=== PATIENT | male | born 1940 | race Two or more races ===

== ENCOUNTER → 2020-05-11 | Outpatient (CLI) | payer MEDICARE, MEDICAID | END | disposition home or self-care (01) | LOC: XY 09:35 | PROVIDERS: ATTEND Podiatrist | DX: I70.293 Other atherosclerosis of native arteries of extremities, bilateral legs (principal); R60.9 Edema, unspecified; L97.519 Non-pressure chronic ulcer of other part of right foot with unspecified severity | CPT/HCPCS: 93925 ==

== ENCOUNTER → 2020-05-26 | Outpatient (CLI) | payer MEDICARE, MEDICAID ==
[~2020-05-26] MED LIST: APIX2.5T PO; BIMA0.01 EACHEYE; BRIN1SUS EACHEYE; BUME1TAB3 PO; CARV3.1240 PO; CETI5TAB20 PO; DOXY100C2 PO; GABA300C10 PO; LEVO25TA6 PO; MECL12.514 PO; METO2.5T11 PO; TRAZ-181 PO
[2020-05-26 09:52] VITALS: BP 108/52
[2020-05-26 10:03] VITALS: BP 115/53
[2020-05-26 11:41] LABS: Basophils # (auto) 0 10 ^3/uL (0-0.2); Basophils % (auto) 0.7 % (0.0-2.0); Eosinophils # (auto) 0.1 10 ^3/uL (0-0.8); Eosinophils % (auto) 1.9 % (0.0-7.0); Hematocrit 31.5 % (41.0-53.0); Hemoglobin 10.9 g/dL (13.5-17.5); Lymphocytes # (auto) 0.8 10 ^3/uL (0.4-5.4); Lymphocytes % (auto) 18.5 % (10.0-50.0); Mean Corpuscular Hemoglobin 32.5 pg (28.0-32.0); Mean Corpuscular Hgb Conc. 34.6 g/dL (32.0-36.0); Mean Corpuscular Volume 93.8 fL (80.0-100.0); Monocytes # (auto) 0.3 10 ^3/uL (0-1.3); Monocytes % (auto) 7.7 % (0.0-12.0); Neutrophils # (auto) 3.2 10 ^3/uL (1.6-8.6); Neutrophils % (auto) 71.2 % (37.0-80.0); Nucleated Red Blood Cells % 0.1 %; Platelet Count (auto) 154 10^3/uL (140-450); Red Blood Cells 3.36 10^6/uL (4.5-5.90); Red Cell Distribution Width 15.2 % (11.8-14.3); White Blood Cell 4.4 10^3/uL (4.4-10.8)
[2020-05-26 11:50] LABS: BUN/Creatinine Ratio 45.6
[2020-05-26 11:59] LABS: Potassium 2.7 mmol/L (3.5-5.1)
[2020-05-26 12:16] LABS: INR 1.04 (0.9-1.15)
== END | disposition home or self-care (01) ==
LOC: Rad HDHVI 09:06
PROVIDERS: ATTEND Internal Medicine Cardiovascular Disease
DX: Z01.812 Encounter for preprocedural laboratory examination (principal); J98.11 Atelectasis; J90 Pleural effusion, not elsewhere classified; I70.0 Atherosclerosis of aorta; M47.814 Spondylosis without myelopathy or radiculopathy, thoracic region
CPT/HCPCS: 36415; 71046; 80048; 85025; 85610; 85730; G0463

== ENCOUNTER 2020-06-01 07:16 | Day surgery (SDC) | payer MEDICARE, MEDICAID ==
[~2020-06-01] VITALS: Ht 162.6 cm; Wt 51.3 kg
[~2020-06-01 07:16] MED LIST changes: -CETI5TAB20 PO; +CETI5TAB6 PO; +METO2.5T PO; -METO2.5T11 PO
[2020-06-01] MEDS ORDERED: IOHEXOL 350 MG/ML 100ML IJ ONE (07:52)
[2020-06-01] MEDS ORDERED: LIDOCAINE 2%HCL (LOCAL ANESTH.) INJ 20ML MDV ONE (07:52)
[2020-06-01] MEDS ORDERED: fentaNYL CITRATE 100 MCG/2 ML VL ONE (09:06)
[2020-06-01] MEDS ORDERED: ANGIOMAX 250 MG VIAL IV ONE (09:06)
[2020-06-01] MEDS ORDERED: MIDAZOLAM HCL 2MG/2ML 2ml VIAL (1mg/ml) ONE (09:07)
[2020-06-01] MEDS ORDERED: SODIUM CHL 0.9% 50 ML ONE (09:07)
[2020-06-01] MEDS ORDERED: IODIXANOL 320MG/ML 100ML BTL IV ONE (09:29)
[2020-06-01] MEDS ORDERED: ACETAMINOPHEN 500 MG TAB PO PRN (10:30)
[2020-06-01] MEDS ORDERED: HYDROcodone-ACET 5/325MG TAB PO PRN (10:30)
== END 2020-06-01 13:22 | disposition home or self-care (01) ==
LOC: CATH 07:16
PROVIDERS: ATTEND Internal Medicine Cardiovascular Disease
DX: I70.211 Atherosclerosis of native arteries of extremities with intermittent claudication, right leg (principal); I25.2 Old myocardial infarction; J98.4 Other disorders of lung; I25.10 Atherosclerotic heart disease of native coronary artery without angina pectoris; I11.0 Hypertensive heart disease with heart failure; E10.9 Type 1 diabetes mellitus without complications; Z98.890 Other specified postprocedural states; Z87.891 Personal history of nicotine dependence; Z20.822 Contact with and (suspected) exposure to COVID-19; Z79.899 Other long term (current) drug therapy
CPT/HCPCS: 37226; 75716; C1725; C1760; C1769; C1887; C1894; J0583; J1644; Q9967; U0003; 99152; 99153; J2250

== ENCOUNTER 2020-06-14 09:15 | Inpatient (IN) | payer MEDICARE, MEDICAID ==
[2020-06-09 14:59] LABS: Basophils # (auto) 0 10 ^3/uL (0-0.2); Basophils % (auto) 1.2 % (0.0-2.0); Eosinophils # (auto) 0.1 10 ^3/uL (0-0.8); Eosinophils % (auto) 1.5 % (0.0-7.0); Hematocrit 28.9 % (41.0-53.0); Hemoglobin 9.9 g/dL (13.5-17.5); Lymphocytes # (auto) 0.7 10 ^3/uL (0.4-5.4); Lymphocytes % (auto) 18.3 % (10.0-50.0); Mean Corpuscular Hemoglobin 32.5 pg (28.0-32.0); Mean Corpuscular Hgb Conc. 34.3 g/dL (32.0-36.0); Mean Corpuscular Volume 94.8 fL (80.0-100.0); Monocytes # (auto) 0.3 10 ^3/uL (0-1.3); Monocytes % (auto) 8.7 % (0.0-12.0); Neutrophils # (auto) 2.8 10 ^3/uL (1.6-8.6); Neutrophils % (auto) 70.3 % (37.0-80.0); Red Blood Cells 3.05 10^6/uL (4.5-5.90); Red Cell Distribution Width 15.3 % (11.8-14.3)
[2020-06-09 15:13] LABS: INR 1.07 (0.9-1.15); Partial Thromboplastin Time 31.3 sec (23.0-31.2)
[2020-06-09 15:15] LABS: Albumin 2.4 g/dL (3.4-5.0); Calcium 8.5 mg/dL (8.5-10.1); Potassium 3.4 mmol/L (3.5-5.1)
[2020-06-09 15:17] LABS: Urine Bacteria NONE SEEN /hpf (None Seen); Urine Blood 1+ /uL (Negative); Urine Hyaline Cast FEW /lpf (0 - 2); Urine Specific Gravity 1.015 (1.001-1.035); Urine WBC 1 /hpf (0 - 3)
[2020-06-09 15:18] LABS: BUN/Creatinine Ratio 25.9; Bilirubin, Total 0.5 mg/dL (0.2-1.0)
[~2020-06-14] VITALS: Ht 162.6 cm; Wt 68.4 kg
[2020-06-14] MEDS ORDERED: ACETAMINOPHEN 500 MG TAB PO PRN (12:30)
[2020-06-14] MEDS ORDERED: DOCUSATE SOD 100 MG CAP PO PRN (12:30)
[2020-06-14] MEDS ORDERED: MORPHINE SULFATE INJECTION 2 MG/ML SYRG IV PRN ×2 (12:30)
[2020-06-14] MEDS ORDERED: SOD CHL 0.9%/ KCL 40MEQ 1,000 ML IV ONE (12:30)
[2020-06-14] MEDS ORDERED: ONDANSETRON HCL 4 MG/2 ML VIAL IV PRN (12:30)
[2020-06-14] MEDS ORDERED: NITROGLYCERIN 0.4 MG SL TAB SL PRN (12:30)
[2020-06-14 13:00] VITALS: BP 101/59
[2020-06-14] MEDS: HYDROcodone-ACET 5/325MG TAB PO PRN (13:15)
[2020-06-14 14:33] LABS: Basophils # (auto) 0.1 10 ^3/uL (0-0.2); Basophils % (auto) 1.5 % (0.0-2.0); Eosinophils # (auto) 0.1 10 ^3/uL (0-0.8); Eosinophils % (auto) 1.4 % (0.0-7.0); Hematocrit 32.3 % (41.0-53.0); Hemoglobin 11.2 g/dL (13.5-17.5); Lymphocytes # (auto) 0.7 10 ^3/uL (0.4-5.4); Lymphocytes % (auto) 15.7 % (10.0-50.0); Mean Corpuscular Hemoglobin 32.8 pg (28.0-32.0); Mean Corpuscular Hgb Conc. 34.5 g/dL (32.0-36.0); Mean Corpuscular Volume 94.9 fL (80.0-100.0); Monocytes # (auto) 0.3 10 ^3/uL (0-1.3); Monocytes % (auto) 6.5 % (0.0-12.0); Neutrophils # (auto) 3.4 10 ^3/uL (1.6-8.6); Neutrophils % (auto) 74.9 % (37.0-80.0); Nucleated Red Blood Cells % 0.1 %; Red Cell Distribution Width 15.1 % (11.8-14.3); White Blood Cell 4.5 10^3/uL (4.4-10.8)
[2020-06-14 14:50] LABS: INR 1.08 (0.9-1.15); Partial Thromboplastin Time 32.3 sec (23.0-31.2)
[2020-06-14 14:53] LABS: Albumin 2.6 g/dL (3.4-5.0); Calcium 8.5 mg/dL (8.5-10.1); Potassium 3.7 mmol/L (3.5-5.1)
[2020-06-14 14:57] LABS: BUN/Creatinine Ratio 29.7; Bilirubin, Total 0.6 mg/dL (0.2-1.0); Total Protein 7.7 g/dL (6.4-8.2)
[2020-06-14] MEDS: metroNIDAZOLE 500MG/100ML 100 ML IV SCH ×2 (15:19→22:13)
[2020-06-14] MEDS: CLINDAMYCIN 300MG IV 50 ML IV SCH ×2 (16:20→20:52)
[2020-06-14 17:00] VITALS: BP 125/65
[2020-06-14] MEDS: CARVEDILOL 3.125 MG TAB PO SCH (18:36)
[2020-06-14 20:00] VITALS: BP 120/61
[2020-06-14 22:00] VITALS: BP 124/60
[2020-06-14] MEDS: traZODone HCL 50 MG TAB PO SCH (22:14)
[2020-06-14] MEDS: LATANOPROST 0.005 % OPTH(EYE) SOL 2.5ML EACHEYE SCH (22:14)
[2020-06-14] MEDS: BRINZOLAMIDE 1% EACHEYE SCH (22:14)
[2020-06-14] MEDS: GABAPENTIN 300 MG CAP PO SCH (22:14)
[2020-06-15] MEDS: CLINDAMYCIN 300MG IV 50 ML IV SCH ×3 (05:10→20:49)
[2020-06-15] MEDS: metroNIDAZOLE 500MG/100ML 100 ML IV SCH ×3 (06:04→21:53)
[2020-06-15] MEDS ORDERED: LEVOTHYROXINE SODIUM 25 MCG TAB PO SCH (07:00)
[2020-06-15 08:00] VITALS: BP 102/57
[2020-06-15 09:00] VITALS: BP 102/57
[2020-06-15] MEDS: cefTRIAXone 1GM/50ML D5W 50 ML IV SCH (09:38)
[2020-06-15] MEDS: BRINZOLAMIDE 1% EACHEYE SCH ×2 (09:38→22:00)
[2020-06-15] MEDS: FLORASTOR (S. BOULARDII) 250 MG CAP PO SCH (09:39)
[2020-06-15] MEDS: GABAPENTIN 300 MG CAP PO SCH ×2 (09:40→21:53)
[2020-06-15] MEDS: FAMOTIDINE 20 MG TAB PO SCH (09:40)
[2020-06-15] MEDS: CARVEDILOL 3.125 MG TAB PO SCH ×2 (10:00→18:46)
[2020-06-15 13:00] VITALS: BP 118/60
[2020-06-15 16:08] VITALS: BP 102/59
[2020-06-15 20:00] VITALS: BP 103/62
[2020-06-15] MEDS: LATANOPROST 0.005 % OPTH(EYE) SOL 2.5ML EACHEYE SCH (21:53)
[2020-06-15] MEDS: traZODone HCL 50 MG TAB PO SCH (21:53)
[2020-06-15 22:00] VITALS: BP 103/62
[2020-06-16] MEDS: CLINDAMYCIN 300MG IV 50 ML IV SCH ×3 (04:44→21:34)
[2020-06-16 05:00] VITALS: BP 92/53
[2020-06-16] MEDS: metroNIDAZOLE 500MG/100ML 100 ML IV SCH ×3 (06:11→22:42)
[2020-06-16 06:29] VITALS: BP 98/62
[2020-06-16] MEDS: LEVOTHYROXINE SODIUM 100 MCG TAB PO SCH (06:47)
[2020-06-16] MEDS: CARVEDILOL 3.125 MG TAB PO SCH ×2 (08:00→17:55)
[2020-06-16 09:00] VITALS: BP 94/59
[2020-06-16] MEDS: cefTRIAXone 1GM/50ML D5W 50 ML IV SCH (09:00)
[2020-06-16] MEDS ORDERED: BUPIVACAINE 0.25% INJ 50ML VIAL ONE (09:14)
[2020-06-16 09:26] LABS: Hematocrit 27.2 % (41.0-53.0); Hemoglobin 9.2 g/dL (13.5-17.5)
[2020-06-16] MEDS ORDERED: fentaNYL CITRATE 100 MCG/2 ML VL ONE (09:28)
[2020-06-16] MEDS ORDERED: MIDAZOLAM HCL 2MG/2ML 2ml VIAL (1mg/ml) ONE (09:28)
[2020-06-16 09:40] LABS: BUN/Creatinine Ratio 27.8; Calcium 8.2 mg/dL (8.5-10.1); Potassium 4.5 mmol/L (3.5-5.1)
[2020-06-16] MEDS: FAMOTIDINE 20 MG TAB PO SCH (10:00)
[2020-06-16] MEDS: FLORASTOR (S. BOULARDII) 250 MG CAP PO SCH (10:00)
[2020-06-16] MEDS: GABAPENTIN 300 MG CAP PO SCH ×2 (10:00→21:35)
[2020-06-16] MEDS: BRINZOLAMIDE 1% EACHEYE SCH ×2 (10:00→21:34)
[2020-06-16 10:02] LABS: INR 1.12 (0.9-1.15)
[2020-06-16] MEDS ORDERED: HYDROmorphone HCL 2 MG/ML VL IV PRN (11:00)
[2020-06-16] MEDS ORDERED: MORPHINE SULFATE 4 MG/ML SYR/VIAL IV PRN (11:00)
[2020-06-16] MEDS ORDERED: ONDANSETRON HCL 4 MG/2 ML VIAL IV PRN (11:00)
[2020-06-16 12:32] LABS: Hematocrit 28.9 % (41.0-53.0); Hemoglobin 9.7 g/dL (13.5-17.5)
[2020-06-16 13:00] VITALS: BP 125/66
[2020-06-16 16:53] VITALS: BP 121/67
[2020-06-16] MEDS: traZODone HCL 50 MG TAB PO SCH (21:35)
[2020-06-16] MEDS: LATANOPROST 0.005 % OPTH(EYE) SOL 2.5ML EACHEYE SCH (21:35)
[2020-06-16] MEDS: HYDROcodone-ACET 5/325MG TAB PO PRN (21:41)
[2020-06-16 22:00] VITALS: BP 126/62
[2020-06-17] VITALS (9 sets, daily range): BP systolic 97–128; BP diastolic 60–65
[2020-06-17] MEDS: CLINDAMYCIN 300MG IV 50 ML IV SCH ×3 (04:38→20:07)
[2020-06-17] MEDS: metroNIDAZOLE 500MG/100ML 100 ML IV SCH ×3 (05:50→21:26)
[2020-06-17] MEDS: LEVOTHYROXINE SODIUM 100 MCG TAB PO SCH (06:43)
[2020-06-17 07:22] LABS: Hematocrit 25.2 % (41.0-53.0); Hemoglobin 8.6 g/dL (13.5-17.5)
[2020-06-17] MEDS: BRINZOLAMIDE 1% EACHEYE SCH ×3 (10:00→21:21)
[2020-06-17] MEDS: cefTRIAXone 1GM/50ML D5W 50 ML IV SCH (10:02)
[2020-06-17] MEDS: CARVEDILOL 3.125 MG TAB PO SCH ×2 (10:02→18:00)
[2020-06-17] MEDS: FLORASTOR (S. BOULARDII) 250 MG CAP PO SCH (10:03)
[2020-06-17] MEDS: GABAPENTIN 300 MG CAP PO SCH ×2 (10:03→21:26)
[2020-06-17] MEDS: FAMOTIDINE 20 MG TAB PO SCH (10:03)
[2020-06-17] MEDS: HYDROcodone-ACET 5/325MG TAB PO PRN (20:07)
[2020-06-17] MEDS: traZODone HCL 50 MG TAB PO SCH (21:26)
[2020-06-17] MEDS: LATANOPROST 0.005 % OPTH(EYE) SOL 2.5ML EACHEYE SCH (21:26)
[2020-06-18] MEDS: CLINDAMYCIN 300MG IV 50 ML IV SCH (04:31)
[2020-06-18 05:00] VITALS: BP 92/46
[2020-06-18 06:00] VITALS: BP 113/66
[2020-06-18] MEDS: metroNIDAZOLE 500MG/100ML 100 ML IV SCH (06:01)
[2020-06-18] MEDS: LEVOTHYROXINE SODIUM 100 MCG TAB PO SCH (06:01)
[2020-06-18] MEDS: HYDROcodone-ACET 5/325MG TAB PO PRN (06:02)
[2020-06-18 06:25] LABS: Basophils # (auto) 0.1 10 ^3/uL (0-0.2); Basophils % (auto) 1.4 % (0.0-2.0); Eosinophils # (auto) 0.1 10 ^3/uL (0-0.8); Eosinophils % (auto) 1.9 % (0.0-7.0); Hematocrit 28.1 % (41.0-53.0); Hemoglobin 9.7 g/dL (13.5-17.5); Lymphocytes # (auto) 0.7 10 ^3/uL (0.4-5.4); Lymphocytes % (auto) 17.2 % (10.0-50.0); Mean Corpuscular Hemoglobin 32.6 pg (28.0-32.0); Mean Corpuscular Hgb Conc. 34.6 g/dL (32.0-36.0); Mean Corpuscular Volume 94.2 fL (80.0-100.0); Monocytes # (auto) 0.5 10 ^3/uL (0-1.3); Monocytes % (auto) 11.6 % (0.0-12.0); Neutrophils # (auto) 2.7 10 ^3/uL (1.6-8.6); Neutrophils % (auto) 67.9 % (37.0-80.0); Red Blood Cells 2.99 10^6/uL (4.5-5.90); Red Cell Distribution Width 15.6 % (11.8-14.3)
[2020-06-18 08:40] VITALS: BP 130/69
[2020-06-18] MEDS: CARVEDILOL 3.125 MG TAB PO SCH ×2 (09:20→17:33)
[2020-06-18] MEDS: FAMOTIDINE 20 MG TAB PO SCH (09:22)
[2020-06-18] MEDS: GABAPENTIN 300 MG CAP PO SCH ×2 (09:22→21:27)
[2020-06-18] MEDS: LINEZOLID 600MG/300ML 300 ML IV SCH ×2 (09:23→21:26)
[2020-06-18] MEDS: BRINZOLAMIDE 1% EACHEYE SCH ×2 (09:24→21:26)
[2020-06-18] MEDS: FLORASTOR (S. BOULARDII) 250 MG CAP PO SCH (09:41)
[2020-06-18 12:30] VITALS: BP 105/68
[2020-06-18 16:50] VITALS: BP 100/65
[2020-06-18] MEDS: traZODone HCL 50 MG TAB PO SCH (21:26)
[2020-06-18] MEDS: LATANOPROST 0.005 % OPTH(EYE) SOL 2.5ML EACHEYE SCH (21:38)
[2020-06-18 22:00] VITALS: BP 121/75
[2020-06-19 05:00] VITALS: BP 102/59
[2020-06-19] MEDS: LEVOTHYROXINE SODIUM 100 MCG TAB PO SCH (06:27)
[2020-06-19 08:00] VITALS: BP 130/73
[2020-06-19] MEDS: FLORASTOR (S. BOULARDII) 250 MG CAP PO SCH (08:59)
[2020-06-19] MEDS: HYDROcodone-ACET 5/325MG TAB PO PRN (09:00)
[2020-06-19] MEDS: FAMOTIDINE 20 MG TAB PO SCH (09:00)
[2020-06-19] MEDS: CARVEDILOL 3.125 MG TAB PO SCH ×2 (09:00→18:14)
[2020-06-19] MEDS: GABAPENTIN 300 MG CAP PO SCH ×2 (09:00→22:56)
[2020-06-19] MEDS: LINEZOLID 600MG/300ML 300 ML IV SCH ×2 (09:02→22:56)
[2020-06-19] MEDS: BRINZOLAMIDE 1% EACHEYE SCH ×2 (09:08→22:55)
[2020-06-19 10:22] LABS: INR 1.2 (0.9-1.15); Partial Thromboplastin Time 33.8 sec (23.0-31.2)
[2020-06-19 12:00] VITALS: BP 121/71
[2020-06-19] MEDS ORDERED: LIDOCAINE 1% (LOCAL ANESTH.) PF 5ml SDV ID ONE (13:15)
[2020-06-19 16:00] VITALS: BP 116/69
[2020-06-19 22:00] VITALS: BP 124/70
[2020-06-19] MEDS: SODIUM CHLOR 0.9% PF (SALINE LOCK) 10ML VIAL/SYR IV SCH (22:55)
[2020-06-19] MEDS: LATANOPROST 0.005 % OPTH(EYE) SOL 2.5ML EACHEYE SCH (22:55)
[2020-06-19] MEDS: traZODone HCL 50 MG TAB PO SCH (22:56)
[2020-06-20 05:00] VITALS: BP 130/78
[2020-06-20] MEDS: HYDROcodone-ACET 5/325MG TAB PO PRN (06:26)
[2020-06-20] MEDS: LEVOTHYROXINE SODIUM 100 MCG TAB PO SCH (06:26)
[2020-06-20 09:00] VITALS: BP 110/63
[2020-06-20] MEDS: GABAPENTIN 300 MG CAP PO SCH (10:18)
[2020-06-20] MEDS: CARVEDILOL 3.125 MG TAB PO SCH ×2 (10:18→17:57)
[2020-06-20] MEDS: FAMOTIDINE 20 MG TAB PO SCH (10:18)
[2020-06-20] MEDS: FLORASTOR (S. BOULARDII) 250 MG CAP PO SCH (10:18)
[2020-06-20] MEDS: LINEZOLID 600MG/300ML 300 ML IV SCH (10:19)
[2020-06-20] MEDS: BRINZOLAMIDE 1% EACHEYE SCH (10:19)
[2020-06-20] MEDS: SODIUM CHLOR 0.9% PF (SALINE LOCK) 10ML VIAL/SYR IV SCH (10:23)
[2020-06-20 13:00] VITALS: BP 109/70
[2020-06-20 16:26] VITALS: BP 113/60
[2020-06-20 17:10] VITALS: BP 113/60
== END 2020-06-20 20:05 | disposition home health service (06) | DRG 617 ==
LOC: EDSTATUS 09:15 → WEST WING 11:36 → TELE-WESTW 11:37
PROVIDERS: ADMIT Nurse Practitioner Acute Care; ATTEND Family Medicine
PROC: 0Y6V0Z0 Detachment at Right 4th Toe, Complete, Open Approach (ICD-10-PCS; 2020-06-16)
PROC: 0Y6T0Z0 Detachment at Right 3rd Toe, Complete, Open Approach (ICD-10-PCS; principal; 2020-06-16 09:31)
PROC: 30233N1 Transfusion of Nonautologous Red Blood Cells into Peripheral Vein, Percutaneous Approach (ICD-10-PCS; 2020-06-17)
PROC: 02HV33Z Insertion of Infusion Device into Superior Vena Cava, Percutaneous Approach (ICD-10-PCS; 2020-06-19)
PROC: B548ZZA Ultrasonography of Superior Vena Cava, Guidance (ICD-10-PCS; 2020-06-19)
DX: E11.69 Type 2 diabetes mellitus with other specified complication (principal); M86.671 Other chronic osteomyelitis, right ankle and foot; I96 Gangrene, not elsewhere classified; E44.0 Moderate protein-calorie malnutrition; I13.0 Hypertensive heart and chronic kidney disease with heart failure and stage 1 through stage 4 chronic kidney disease, or unspecified chronic kidney disease; E11.52 Type 2 diabetes mellitus with diabetic peripheral angiopathy with gangrene; Z20.822 Contact with and (suspected) exposure to COVID-19; E03.9 Hypothyroidism, unspecified; I25.5 Ischemic cardiomyopathy; E87.6 Hypokalemia; G62.9 Polyneuropathy, unspecified; D64.9 Anemia, unspecified; E78.5 Hyperlipidemia, unspecified; E11.22 Type 2 diabetes mellitus with diabetic chronic kidney disease; E11.65 Type 2 diabetes mellitus with hyperglycemia; G47.00 Insomnia, unspecified; H40.9 Unspecified glaucoma; I25.10 Atherosclerotic heart disease of native coronary artery without angina pectoris; I48.91 Unspecified atrial fibrillation; I50.9 Heart failure, unspecified; N18.9 Chronic kidney disease, unspecified; Z79.01 Long term (current) use of anticoagulants; Z79.899 Other long term (current) drug therapy; Z95.810 Presence of automatic (implantable) cardiac defibrillator; Z95.820 Peripheral vascular angioplasty status with implants and grafts; Z68.33 Body mass index [BMI] 33.0-33.9, adult
CPT/HCPCS: 36415; 36569; 71045; 73700; 80048; 80053; 81001; 84443; 85014; 85018; 85025; 85610; 85730; 86850; 86900; 86901; 86920; 87040; 87077; 87186; 87205; 87426; 93005; 93306; G0378; J0696; J2250; J3490; Q4100